=== PATIENT | male | born 2000 | race African-American/Black ===

== ENCOUNTER 2023-06-22 14:28 | Inpatient (IN) ==
[2023-06-22 15:15] LABS: Appearance Urine Clear (Clear); Bacteria Urine Automated Negative (Negative); Bilirubin Urine Negative (Negative); Blood Urine Negative (Negative); Cast Urine Automated 0 /lpf (0-5); Color Urine Yellow; Glucose Urine UA Negative (Negative); Ketones Urine Negative (Negative); Leukocyte Esterase Urine 2+ (Negative); Nitrite Urine Negative (Negative); Protein Urine Negative (Negative); RBC Urine Automated 0-4 /hpf (0-4); Specific Gravity Urine 1.008 (1.000-1.030); Urobilinogen Urine Negative (Negative); WBC Urine Automated >30 /hpf (0-5)
[2023-06-22 15:45] LABS: Basophils # (auto) 0.03 K/uL (0.00-0.20); Basophils % (auto) 0.7 %; Eosinophils # (auto) 0.06 K/uL (0.00-0.50); Eosinophils % (auto) 1.3 %; Hematocrit (blood only) 40.6 % (42.0-52.0); Hemoglobin 13.6 g/dl (14.0-18.0); Immature Granulocytes # (auto) 0.02 K/uL (0.01-0.20); Immature Granulocytes % (auto) 0.4 %; Lymphocytes # (auto) 1.42 K/uL (1.20-3.40); Lymphocytes % (auto) 30.9 %; Mean Corpuscular Hemoglobin 30.3 pg (25.0-34.0); Mean Corpuscular Hgb Conc 33.5 g/dL (32.0-36.0); Mean Corpuscular Volume 90.4 fL (80.0-100.0); Mean Platelet Volume 11.7 fL (9.4-12.4); Monocytes # (auto) 0.47 K/uL (0.11-0.59); Monocytes % (auto) 10.2 %; Neutrophils # (auto) 2.59 K/uL (1.40-6.50); Neutrophils % (auto) 56.5 %; Platelet Count 199 K/uL (130-400); RDW Coefficient of Variation 11.7 % (11.5-14.5); RDW Standard Deviation 38.8 fL (36.4-46.3); Red Blood Count 4.49 M/uL (4.70-6.10); White Blood Count 4.59 K/ul (4.8-10.8)
[2023-06-22 16:07] LABS: Albumin Globulin Ratio 1.4 (0.9-2); Albumin Level 4.6 gm/dl (3.4-5.0); BUN Creatinine Ratio 10.9 (10-20); Bilirubin,Total 1.5 mg/dl (0.2-1.0); Calcium 9.7 mg/dl (8.6-10.3); Creatinine Clr Calc Pharmacy 118.7 ml/min; Est GFR (African American) 137.3 ml/min; Est GFR (Non-African American) 118.5 ml/min; Globulin 3.2 gm/dl (2.5-4.0); Potassium 4.1 mmol/L (3.5-5.1); Total Protein 7.8 gm/dl (6.0-8.3)
[2023-06-22 16:16] LABS: Acetaminophen < 3 ug/ml (10-30); Salicylate < 3.0 mg/dl (3.0-30)
[2023-06-22 16:16] LABS: Amphetamines+Metham, Urine Neg (Neg); Barbiturates, Urine Neg (Neg); Benzodiazepine, Urine Neg (Neg); Cocaine, Urine Neg (Neg); MDMA (Ecstacy), Urine Neg (Neg); Marijuana, Urine Pos (Neg); Methadone, Urine Neg (Neg); Opiate, Urine Neg (Neg); Phencyclidine, Urine Neg (Neg)
[2023-06-22 16:22] LABS: Thyroid Stimulating Hormone 1.018 uIu/ml (0.300-4.500)
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
[2023-06-22] MEDS ORDERED: ACETAMINOPHEN 325 MG TAB PO PRN (22:29)
[2023-06-22] MEDS ORDERED: hydrOXYzine HCl 25 MG TAB PO PRN (22:29)
[2023-06-22] MEDS ORDERED: ALUMINUM/MAGNESIUM SUSP 30 ML UDC PO PRN (22:29)
[2023-06-22] MEDS ORDERED: MAGNESIUM HYDROXIDE SUSP 30 ML UDC PO PRN (22:29)
[2023-06-22] MEDS ORDERED: NICOTINE POLACRILEX 2 MG GUM MT PRN (22:29)
[2023-06-22] MEDS ORDERED: SODIUM CHLORIDE 0.65% NA SOLN 45 ML (OCEAN) PRN (22:29)
[2023-06-22] MEDS ORDERED: BISMUTH SUBSALICYLATE LIQD 236 ML PO PRN (22:29)
[2023-06-22] MEDS ORDERED: QUEtiapine FUMARATE 25 MG TABLET PO PRN (22:31)
[2023-06-23] MEDS: hydrOXYzine HCl 25 MG TAB PO PRN ×2 (00:19→22:21)
--- OUTSIDE RECORDS SUMMARY | 2023-06-23 00:50 | External Medical Summary | Summary of Care ---
Author Name Unknown Organization [facility] Address [address] [place] [address] Phone [phone] Care Team Providers Care Certified Legal Secretary Specialist Name Role Phone Saniya Proctor PA-C Primary Care Provide r Reason for Visit * Reason Onset Date Comments Advice 04/27/2023 Encounter Details Date Type Department Care Team ([facility] Contact Info) Description 04/27/2023 Telephone Family Practice [facility] [address] [facility] [place] [address] Saniya Proctor PA-C [address] [place] [address] Advice Allergies Active Allergy Reactions Criticality Noted Date Comments Cat Dander Other (Please comment) 01/04/2021 Respiratory problems Dog Dander Medium 04/25/2012 Pollen,pet and others documented as of this encounter (statuses as of 05/10/2023) Medications Medication Sig Dispensed Refills Start Date End Date Status Albuterol Sulfate HFA 108 (90 Base) MCG/ACT Inhalation Aerosol SolutionIndication s:Mild persistent asthma without complication Use 2 puffs every 4 hours as needed for wheezing 18 g 1 02/28/2023 05/02/2023 Discontinued (Refill) Sertraline HCl 50 MG Oral Tablet (Zoloft)Indication s:Moderate episode of recurrent major depressive disorder (HCC) 1/2 tablet by mouth daily x 2 weeks, then increase to a full tablet daily 30 Tablet 1 02/28/2023 05/02/2023 Discontinued (Refill) documented as of this encounter (statuses as of 05/10/2023) Active Problems Problem Noted Date Diagnosed Date TRACEY (generalized anxiety disorder) 05/08/2023 Moderate episode of recurrent major depressive d isorder 05/08/2023 Current mild episode of paulina r depressive disorder without prior episode 02/28/2023 Allergic disorder 01/27/2020 Lymph node enlargement 11/13/2017 Mild persistent asthma without complication 12/16 Overview: documented as of this encounter (statuses as of 05/10/2023) Resolved Problems Problem Noted Date Diagnosed Date Resolved Date Folliculitis 12/27/2012 05/18/2017 Tinea capitis 02/06/2012 12/27/2012 Exercise-induced asthma 01/15/201008/2016 Asthma, allergic 12/09/2009 01/07/2010 Overview: Per Asthma Taxonomy documented as of this encounter (statuses as of 05/10/2023) Immunizations Name Administration Dates Next Due DT - Diptheria/Tetanus (PEDS) 07/02/2007 ,12/26/2002,10/03/2002,04/25,02/07/2002 H1N1 2009 Influenza, Intranasal 07/29/2009,06/23 HPV Vaccine, 9-Valent 05/18/2017 Hepatitis B, 0-19 yrs 12/26/2002, 002,02/07/2002,12/09 IPV - Polio Virus Vaccine (Inact) 2006,10/03/2002,04/25/2002,02/07 MMR - Measles/Mumps/Rubella Vaccine 07/02/2007,0 12/26/2002 Meningococcal Conjugate Vacc ine (Menactra/Menveo) 12/27/2012 Meningococcal MCV4O Conjugat e Vaccine (Menveo) 11/30/2018 Pneumococcal Conjugate Vacci ne, 20-valent ([id number]) 05/08/2023 SEASONAL INFLUENZA, PF, 6 M & Above, IM , (FLULAVAL or FLUZONE) 05/08/2023,04/12/2021,04/14/2020,07/15,05/18/2017 Seasonal Influenza, Split, I IV3, With Preserve, Inj 03/27/2014,05/04/2012,03/16/2011,07/21 TDAP (age 10 and older)(Boostrix) 05/08/2023 TDAP (age 11 and older)(Adacel) 12/27/2012 Varicella Vaccine (Chicken Pox) 07/02/2007,12/26 documented as of this encounter Social History Tobacco Use Types Packs/Day Years Used Date Smoking Tobacco: Never Smokeless Tobacco: Never Alcohol Use Standard Drinks/Week Comments No 0 (1 standard drink = 0.6 oz pur e alcohol) PHQ-2 Answer Date Recorded PHQ Adult Total Score 17 05/08/2023 Hunger Vital Sign Answer Date Recorded Within the past 12 months, y ou worried that your food would run out before you got the money to buy more. Often true 05/08/20 Within the past 12 months, t he food you bought just didn't last and you didn't have money to get more. Often true 05/08/2023 Sex and Gender Information Value Date Recorded Sex Assigned at Male 05/08/2023 12:03 PM EDT Gender Identity Male 05/08/2023 12:03 PM EDT Sexual Orientation Straight 05/08/2023 12 :03 PM EDT Job Start Date Occupation Industry Not on file Not on file Not on file documented as of this encounter Miscellaneous Notes * Telephone Encounter - Latasha Churchill LPN - 05/10/2023 9:14 AM EDT Left message for pt to call back. Letter placed out front for picking tech * Telephone Encounter - Saniya Proctor PA-C - 05/10/2023 7:55 AM EDT Letter signed, placed on Natasha's desk. * Telephone Encounter - Effie Starks RN - 05/09/2023 4:10 PM EDT Letter printed. On Saniya desk. * Telephone Encounter - Saniya Proctor PA-C - 05/09/2023 1:31 PM EDT This was added. * Telephone Encounter - Latasha Churchill LPN - 05/03/2023 2:17 PM EDT Assuming pt wants copy of problem list - anxiety is not listed as a diagnosis on problem list - should this be added? * Telephone Encounter - Saniya Proctor PA-C - 04/29/2023 11:58 AM EDT What does this even mean? * Telephone Encounter - CARLEE Alcazar - 04/27/2023 11:23 AM EDT Patient would like a copy of his Anxiety Dx. Please contact him once this is ready for him to picking tech. CARLEE Alcazar documented in this encounter Plan of Treatment Health Maintenance Due Date Last Done Comments COVID-19 Vaccine (#1) 06/10/2002 HIV Screening 2016 GARDASIL-HPV IMMUNIZATION SE FREDO (2 - Male 3-dose series) 06/15/2017 05/18/2017 Hepatitis C Screening 12/09/2019 Depression, Most Recent Scor e >= 10 (will fire each visit until score < 10) 05/09/2023 05/08/2023 Yearly Wellness Visit 05/08/2024 05/08/2023 , 04/27/2020, 07/15/2019, Additional history exists DTaP,Tdap,and Td Vaccines (7 - Td or Tdap) 05/08/2033 05/08/2023, 12/27/2012, 07/02/2007, Additional history exists Hepatitis B Completed 12/26/2002, 04/16, 02/07/2002, Additional history exists MENINGOCOCCAL (MENACTRA/MENVEO) Completed , 12/27/2012 Influenza Vaccine (FLU shot) Completed , 04/12/2021, 04/14/2020, Additional history exists Pneumococcal Vaccine: Pediat rics (0 to 5 Years) and At-Risk Patients (6 to 64 Years) Completed 05/08/2023 documented as of this encounter Medical Devices Not on filedocumented as of this encounter Care Teams Certified Legal Secretary Specialist Relationship Specialty Start Date End Date Saniya Proctor PA-C [address] [place] [address] PCP - General Physician Ladle Pourer 05/08/23 documented as of this encounter
--- OUTSIDE RECORDS SUMMARY | 2023-06-23 00:50 | External Medical Summary | Summary of Care ---
Author Name Unknown Organization [facility] Address [address] [place] [address] Phone [phone] Care Team Providers Care Dog Warden Name Role Phone Saniya Proctor PA-C Primary Care Provide r Reason for Visit * Reason Onset Date Comments Advice 04/27/2023 Encounter Details Date Type Department Care Team ([facility] Contact Info) Description 04/27/2023 Telephone Family Practice [facility] [address] [facility] [place] [address] Saniya Proctor PA-C [address] [place] [address] Advice Allergies Active Allergy Reactions Criticality Noted [...] (Menveo) 11/30/2018 Pneumococcal Conjugate Vacci ne, 20-valent ([id number]) 05/08/2023 SEASONAL INFLUENZA, PF, 6 M & [...] money to buy more. Often true 05/08/20 23 Within the past 12 months, t he [...] encounter Miscellaneous Notes * Telephone Encounter - Saniya Proctor PA-C - 05/10/2023 7:55 AM EDT Letter signed, placed on [employer]'s desk. * Telephone Encounter - Effie Starks RN - 05/09/2023 4:10 PM EDT Letter printed. On [employer] desk. * Telephone Encounter - Saniya Proctor [...] once this is ready for him to poultry picker. CARLEE Alcazar documented in this encounter Plan [...] 02/07/2002, Additional history exists MENINGOCOCCAL (MENACTRA/MENVEO) Completed 9, 12/27/2012 Influenza Vaccine (FLU shot) Completed , 04/12/2021, 04/14/2020, Additional history exists Pneumococcal Vaccine: Pediat rics (0 to 5 Years) and At-Risk Patients (6 to 64 Years) Completed 05/08/2023 documented as of this encounter Medical Devices Not on filedocumented as of this encounter Care Teams Dog Warden Relationship Specialty Start Date End Date Saniya Proctor PA-C [address] [place] [address] PCP - General Physician Boat Pilot 05/08/23 documented as of this encounter
--- OUTSIDE RECORDS SUMMARY | 2023-06-23 00:50 | External Medical Summary | Summary of Care ---
Author Name Unknown Organization [facility] Address [address] [place] [address] Phone [phone] Care Team Providers Care Oil Well Services Dispatcher Name Role Phone Saniya Proctor PA-C Primary Care Provide r Reason for Visit * Reason Onset Date Comments Advice 04/27/2023 Encounter Details Date Type Department Care Team ([facility] Contact Info) Description 04/27/2023 Telephone Family Practice [facility] [address] [facility] [place] [address] Saniya Proctor PA-C [address] [place] [address] Advice Allergies Active Allergy Reactions Criticality Noted [...] (Menveo) 11/30/2018 Pneumococcal Conjugate Vacci ne, 20-valent ([id number]) 05/08/2023 SEASONAL INFLUENZA, PF, 6 M & [...] encounter Miscellaneous Notes * Telephone Encounter - Sayda Bell LPN - 05/10/2023 10:34 AM EDT Patient aware and verbalized understanding, will comply * Telephone Encounter - Latasha Churchill LPN - 05/10/2023 9:14 AM EDT Left message for pt to call back. Letter placed out front for picker and packer * Telephone Encounter - Saniya Proctor PA-C [...] once this is ready for him to picker and packer. CARLEE Alcazar documented in this encounter Plan [...] filedocumented as of this encounter Care Teams Oil Well Services Dispatcher Relationship Specialty Start Date End Date Saniya Proctor PA-C [address] [place] [address] PCP - General Physician Staffing Analyst 05/08/23 documented as of this encounter
--- OUTSIDE RECORDS SUMMARY | 2023-06-23 00:50 | External Medical Summary | Summary of Care ---
Author Name Unknown Organization [facility] Address [address] [place] [address] Phone [phone] Care Team Providers Care Equipment Tech Name Role Phone Saniya Proctor PA-C Primary Care Provide r Encounter Details Date Type Department Care Team (Late st Contact Info) Description 06/06/2023 Population Health External Data Unspecified Department Allergies Active Allergy Reactions Criticality Noted Date Comments Cat Dander Other (Please comment) 01/04/2021 Respiratory problems Dog Dander Medium 04/25/2012 Pollen,pet and others documented as of this encounter (statuses as of 06/06/2023) Medications Medication Sig Dispensed Refills Start Date End Date Status Albuterol Sulfate HFA 108 (90 Base) MCG/ACT Inhalation Aerosol SolutionIndications: Mild persistent asthma without complication Use 2 puffs every 4 hours as needed for wheezing 18 g 1 05/03/2023 Active Sertraline HCl 50 MG Oral Tablet (Zoloft)Indications: Moderate episode of recurrent major depressive disorder (HCC) Take 1 Tablet by mouth in the morning. 1/2 tablet by mouth daily x 2 weeks, then increase to a full tablet daily. 30 Tablet 5 05/08/2023 Active Multi For Him Oral Capsule Take 1 Capsule by mouth every evening. 100 Capsule 11 05/08/2023 Active Cetirizine HCl 10 MG Oral Tablet (ZyrTEC) Take 1 Tablet by mouth in the morning. 90 Tablet 3 05/30/2023 Active documented as of this encounter (statuses as of 06/06/2023) Active Problems Problem Noted Date Diagnosed Date Food insecurity 05/29/2023 Overview: Per [facility] Protocol TRACEY (generalized anxiety disorder) 05/08/2023 Moderate episode of recurrent major depressive d isorder 05/08/2023 Current mild episode of paulina r depressive disorder without prior episode 02/28/2023 Allergic disorder 01/27/2020 Lymph node enlargement 11/13/2017 Mild persistent asthma without complication 12/16 Overview: documented as of this encounter (statuses as of 06/06/2023) Resolved Problems Problem Noted Date Diagnosed Date Resolved Date Folliculitis 12/27/2012 05/18/2017 Tinea capitis 02/06/2012 12/27/2012 Exercise-induced asthma 01/15/201008/2016 Asthma, allergic 12/09/2009 01/07/2010 Overview: Per Asthma Taxonomy documented as of this encounter (statuses as of 06/06/2023) Immunizations Name Administration Dates Next Due DT - Diptheria/Tetanus (PEDS) 07/02/2007 ,12/26/2002,10/03/2002,04/25,02/07/2002 H1N1 2009 Influenza, Intranasal 07/29/2009,06/23 HPV Vaccine, 9-Valent 05/18/2017 Hepatitis B, 0-19 yrs 12/26/2002, 002,02/07/2002,12/09 IPV - Polio Virus Vaccine (Inact) 2006,10/03/2002,04/25/2002,02/07 MMR - Measles/Mumps/Rubella Vaccine 07/02/2007,0 12/26/2002 Meningococcal Conjugate Vacc ine (Menactra/Menveo) 12/27/2012 Meningococcal MCV4O Conjugat e Vaccine (Menveo) 11/30/2018 Pneumococcal Conjugate Vacci ne, 20-valent ([id number]) 05/08/2023 SEASONAL INFLUENZA, PF, 6 M & [...] on file documented as of this encounter Plan of Treatment Health Maintenance [...] filedocumented as of this encounter Care Teams Equipment Tech Relationship Specialty Start Date End Date Saniya Proctor PA-C [address] [place] [address] PCP - General Physician Boom Crane Operator 05/08/23 documented as of this encounter
--- OUTSIDE RECORDS SUMMARY | 2023-06-23 00:50 | External Medical Summary | Summary of Care ---
Author Name Unknown Organization [facility] Address [address] [place] [address] Phone [phone] Care Team Providers Care International Account Executive Name Role Phone Saniya Proctor PA-C Primary Care Provide r Reason for Visit * Reason Onset Date Comments Advice 04/27/2023 Encounter Details Date Type Department Care Team ([facility] Contact Info) Description 04/27/2023 Telephone Family Practice [facility] [address] [facility] [place] [address] Saniya Proctor PA-C [address] [place] [address] Advice Allergies Active Allergy Reactions Criticality Noted [...] (Menveo) 11/30/2018 Pneumococcal Conjugate Vacci ne, 20-valent ([id number]) 05/08/2023 SEASONAL INFLUENZA, PF, 6 M & [...] call back. Letter placed out front for product picker * Telephone Encounter - Saniya Proctor PA-C [...] once this is ready for him to product picker. CARLEE Alcazar documented in this encounter [...] filedocumented as of this encounter Care Teams International Account Executive Relationship Specialty Start Date End Date Saniya Proctor PA-C [address] [place] [address] PCP - General Physician Automobile Insurance Claim Examiner 05/08/23 documented as of this encounter
[2023-06-23] MEDS: NICOTINE 21 MG/24 HR TDSY TD SCH (10:23)
[2023-06-23] MEDS ORDERED: CITALOPRAM 20 MG TAB PO ONE (13:05)
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
[2023-06-23] MEDS: QUEtiapine FUMARATE 25 MG TABLET PO SCH (21:01)
[2023-06-24 08:03] LABS: Chol HDL Ratio 3.4 (0-5)
[2023-06-24] MEDS: CITALOPRAM 20 MG TAB PO SCH (10:01)
[2023-06-24] MEDS: NICOTINE 21 MG/24 HR TDSY TD SCH (10:02)
[2023-06-24 15:37] LABS: Folate (Folic Acid),Ser orPlas 19.23 ng/ml (>5.38)
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
[2023-06-24] MEDS: QUEtiapine FUMARATE 25 MG TABLET PO SCH (20:55)
[2023-06-24] MEDS: hydrOXYzine HCl 25 MG TAB PO PRN (23:00)
[2023-06-25] MEDS: CITALOPRAM 20 MG TAB PO SCH (08:19)
[2023-06-25] MEDS: NICOTINE 21 MG/24 HR TDSY TD SCH (08:19)
[2023-06-25 08:22] LABS: Marijuana Quant, GCMS Urine 780 ng/mL (<5)
[2023-06-25] MEDS ORDERED: DESTROY THIS MEDICATION ONE ×2 (13:00→13:35)
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
== END 2023-06-25 13:00 | disposition home or self-care (01) | DRG 881 ==
LOC: ED 14:28 → 3S 21:09